=== PATIENT | male | born 2000 | race Caucasian/White ===

== ENCOUNTER 2023-03-17 12:12 | Emergency (ER) | payer SELFPAY ==
[2023-03-17 12:15] VITALS: BP 153/101; PULSE 83; RESP 18; TEMP 37.1; O2SAT 99
[2023-03-17] MEDS: diphenhydrAMINE Elixir 25 MG/10 ML CUP PO (12:37)
[2023-03-17 12:40] VITALS: RESP 18
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
[2023-03-17 13:23] VITALS: BP 153/89; PULSE 75; RESP 18; TEMP 36.8; O2SAT 98
--- OUTSIDE RECORDS SUMMARY | 2023-03-17 14:19 | XMS_ITS | Continuity of Care Document ---
Author Name Unknown Organization [facility] Address Unknown Care Team Providers Care Building Construction Inspector Name Role Phone NikiStuart Primary Care Physician Encounter Date(s): 07/13/22 - 07/13/22 [facility] [address] [facility] [place] [address]- Discharge Disposition: Home or Self Care Allergies, Adverse Reactions, Alerts No Known Allergies Medications albuterol inhaler 0 Refill(s) Start Date: 01/08/13 Status: Ordered Pepcid 40 mg oral tablet 40 mg = 1 tab(s), Oral, BID, # 28 tab(s), 0 Refill(s), Pharmacy: [facility] #[id number], 182.88, cm, 11/19/19 3:28:00 EST, Height/Length Dosing, 86.18, kg, 11/19/19 3:28:00 EST, Weight Dosing Start Date: 11/19/19 Status: Ordered PriLOSEC 20 mg oral delayed release capsule 20 mg = 1 cap(s), Oral, Daily, # 30 cap(s), 0 Refill(s), Pharmacy: [facility] #[id number], 182,cm, 12/22/21 15:26:00 EDT, Height/Length Dosing, 91, kg, 12/22/21 15:26:00 EDT, Weight Dosing Start Date: 12/22/21 Status: Ordered Zofran ODT 4 mg oral tablet, disintegrating 4 mg = 1 tab(s), Oral, q8hr, PRN PRN: as needed for nausea/vomiting, # 5 tab(s), 0 Refill(s), Pharmacy: [facility] #[id number], 182.88, cm, 11/19/19 3:28:00 EST, Height/Length Dosing, 86.18, kg, 02/17/20 3:28:00 EST, Weight Dosing Start Date: 11/19/19 Status: Ordered Problem List Condition Effective Dates Status Health Status Inform ant Asthma(Confirmed) Active Social History Social History Type Response Smoking Status Never smoker Sex Male Care Team Care Team Personnel Name: VALDO Siddiqui Position: Community Physician Med Service: Admitting Member Role: Primary Care Physician Address: Address: [address] Care Team Related Persons Name: EDSON KRAFT Address: Home [address] [place], [id number] Name: EDSON KRAFT Address: [address] [place], [id number] Name: MIKE KAMARA Address: Home [address] [facility] [id number]
--- OUTSIDE RECORDS SUMMARY | 2023-03-17 14:19 | XMS_ITS | Continuity of Care Document ---
Author Name Unknown Organization [facility] Address Unknown Care Team Providers Care Principal Developer Name Role Phone Stuart Prince Primary Care Physician [phone] Encounter Date(s): 12/25/21 - 12/25/21 [facility] [address] [place], [place] [address] Discharge Disposition: Home or Self Care Attending Physician: VALDO Siddiqui Admitting Physician: VALDO Siddiqui Allergies, Adverse Reactions, Alerts No Known Allergies Assessment and Plan Diagnostic Tests Pending * Hepatitis B Core Antibody 12/25/21 * Hepatitis B Surface Antibody 12/25/21 * Hepatitis B Surface Antigen 12/25/21 * Hepatitis C Antibody 12/25/21 Future Scheduled Tests Radiology* US RUQ Sonogram - [id number] 12/25/21 Medications albuterol inhaler 0 Refill(s) Start Date: 01/08/13 Status: Ordered Pepcid 40 mg oral tablet 40 mg = 1 tab(s), Oral, BID, # 28 tab(s), 0 Refill(s), Pharmacy: [facility] #[id number], 182.88, cm, 11/19/19 3:28:00 EST, Height/Length Dosing, 86.18, kg, 11/19/19 3:28:00 EST, Weight Dosing Start Date: 11/19/19 Status: Ordered PriLOSEC 20 mg oral delayed release capsule 20 mg = 1 cap(s), Oral, Daily, # 30 cap(s), 0 Refill(s), Pharmacy: [facility] #[id number], 182,cm, 12/22/21 15:26:00 EDT, Height/Length Dosing, 91, kg, 12/22/21 15:26:00 EDT, Weight Dosing Start Date: 12/22/21 Status: Ordered Zofran ODT 4 mg oral tablet, disintegrating 4 mg = 1 tab(s), Oral, q8hr, PRN PRN: as needed for nausea/vomiting, # 5 tab(s), 0 Refill(s), [id number], 182.88, cm, 11/19/19 3:28:00 EST, Height/Length Dosing, 86.18, kg, 11/19/19 3:28:00 EST, Weight Dosing Start Date: 11/19/19 Status: Ordered Problem List Condition Effective Dates Status Health Status Inform ant Asthma(Confirmed) Active Social History Social History Type Response Smoking Status Never smoker Sex Male Care Team Personnel Name: VALDO Siddiqui Address: [address] [place] [address]- [place]
--- OUTSIDE RECORDS SUMMARY | 2023-03-17 14:19 | XMS_ITS | Continuity of Care Document ---
Author Name Unknown Organization [facility] Address Unknown Care Team Providers Care Policewoman Name Role Phone Unknown PCP, Unknown PCP Primary Care Physician Unavailable Encounter Date(s): 12/03/21 - 12/03/21 [facility] [address] [place] [address]- Discharge Disposition: Home or Self Care Attending Physician: CESAR BURGESS NP Admitting Physician: CESAR BURGESS NP Allergies, Adverse Reactions, Alerts No Known Allergies Medications albuterol inhaler 0 Refill(s) Start Date: 01/08/13 Status: Ordered Pepcid 40 mg oral tablet 40 mg = 1 tab(s), Oral, BID, # 28 tab(s), 0 Refill(s), Pharmacy: [facility] #[id number], 182.88, cm, 11/19/19 3:28:00 EST, Height/Length Dosing, 86.18, kg, 11/19/19 3:28:00 EST, Weight Dosing Start Date: 11/19/19 Status: Ordered Zofran ODT 4 mg oral tablet, disintegrating 4 mg = 1 tab(s), Oral, q8hr, PRN PRN: as needed for nausea/vomiting, # 5 tab(s), 0 Refill(s), Pharmacy: [facility] #[id number], 182.88, cm, 11/19/19 3:28:00 EST, Height/Length Dosing, 86.18, kg, 11/19/19 3:28:00 EST, Weight Dosing Start Date: 11/19/19 Status: Ordered Problem List Condition Effective Dates Status Health Status Inform ant Asthma(Confirmed) Active Results Laboratory List Name Date .Estimated Glomerular Filtration Rate 12/03/21 Auto Differential 12/03/21 CBC Auto Diff reflex Manual Diff (CBC W/ AUTO DIFF) 12/03/21 Comprehensive Metabolic Panel (COMPREHEN SIVE METABOLIC PANEL) 12/03/21 Thyroid Stimulating Hormone (TSH) 12/03/21 Most recent to oldest [Reference Range]: 1 AGAP 7 *NA* (12/03/21 2:43 PM) A/G Ratio 1.2 *NA* (12/03/21 2:43 PM) BUN/Creat Ratio 26 *NA* (12/03/21 2:43 PM) RBC [4.50-5.90 x10(6)/mcL] 4.90 x10(6)/m cL (12/03/21 2:43 PM) RDW [11.5-14.5 %] 13.0 % (12/03/21 2:43 PM) Sodium Level [136-145 mmol/L] 139 mmol/L (12/03/21 2:43 PM) Total Protein [6.4-8.2 gm/dL] 7.4 gm/dL (12/03/21 2:43 PM) TSH [0.360-3.740 mcIU/mL] 1.120 mcIU/mL (12/03/21 2:43 PM) AST [15-37 IU/L] 59 IU/L *HI* (12/03/21 2:43 PM) Bili Total [0.20-1.00 mg/dL] 0.30 mg/dL (12/03/21 2:43 PM) CO2 [21-32 mmol/L] 28 mmol/L (12/03/21 2:43 PM) Albumin Level [3.4-5.0 gm/dL] 4.0 gm/dL (12/03/21 2:43 PM) Alk Phos [45-117 unit/L] 71 unit/L (12/03/21 2:43 PM) ALT [13-61 IU/L] 75 IU/L *HI* (12/03/21 2:43 PM) Hct [41.0-53.0 %] 46.8 % (12/03/21 2:43 PM) Hgb [13.9-16.3 gm/dL] 15.8 gm/dL (12/03/21 2:43 PM) MCH [26.0-34.0 pg] 32.2 pg (12/03/21 2:43 PM) MCHC [31.0-37.0 gm/dL] 33.8 gm/dL (12/03/21 2:43 PM) MCV [80-100 fL] 96 fL (12/03/21 2:43 PM) MPV [9.2-12.7 fL] 9.3 fL (12/03/21 2:43 PM) Glucose Level [74-106 mg/dL] 78 mg/dL (12/03/21 2:43 PM) Platelet [150-350 x10(3)/mcL] 247 x10(3) /mcL (12/03/21 2:43 PM) Potassium Level [3.5-5.1 mmol/L] 4.0 mmo l/L (12/03/21 2:43 PM) WBC [4.5-11.0 x10(3)/mcL] 10.4 x10(3)/mc L (12/03/21 2:43 PM) BUN [7-18 mg/dL] 26 mg/dL *HI* (12/03/21 2:43 PM) Calcium Level [8.5-10.1 mg/dL] 9.2 mg/dL (12/03/21 2:43 PM) Chloride [98-107 mmol/L] 108 mmol/L *HI* (12/03/21 2:43 PM) eGFR AA >60 mL/min/1.73 m2 *NA* (12/03/21 2:43 PM) eGFR SUZI >60 mL/min/1.73 m2 *NA* (12/03/21 2:43 PM) Neutrophil Absolute [1.50-7.80 x10(3)/mc L] 5.28 x10(3)/mcL (12/03/21 2:43 PM) Lymphocyte Absolute [1.10-4.80 x10(3)/mc L] 4.06 x10(3)/mcL (12/03/21 2:43 PM) Monocyte Absolute 0.73 x10(3)/mcL *NA* (12/03/21 2:43 PM) Eosinophil Absolute 0.25 x10(3)/mcL *NA* (12/03/21 2:43 PM) Basophil Absolute 0.05 x10(3)/mcL *NA* (12/03/21 2:43 PM) Imm Gran Absolute 0.02 /mcL *NA* (12/03/21 2:43 PM) NRBC % [0.0-0.2 %] 0.0 % (12/03/21 2:43 PM) Osmol Calculated 281 mOsm/kg *NA* (12/03/21 2:43 PM) Eosinophil Auto [1.0-4.0 %] 2.4 % (12/03/21 2:43 PM) Immature Granulocyte Auto 0 % *NA* (12/03/21 2:43 PM) Lymphocyte Auto [24.0-44.0 %] 39.1 % (12/03/21 2:43 PM) Monocyte Auto [2.0-11.0 %] 7.0 % (12/03/21 2:43 PM) Neutrophil Auto [31.0-76.0 %] 50.8 % (12/03/21 2:43 PM) Basophil Auto [0.0-2.0 %] 0.5 % (12/03/21 2:43 PM) Creatinine [0.6-1.3 mg/dL] 1.0 mg/dL (12/03/21 2:43 PM) Social History Social History Type Response Smoking Status Never smoker Sex Male Care Team Personnel Name: Unknown PCP Unknown PCP,
--- OUTSIDE RECORDS SUMMARY | 2023-03-17 14:20 | XMS_ITS | Continuity of Care Document ---
Author Name Unknown Organization [facility] Address Unknown Care Team Providers Care Certified Fraud Examiner Name Role Phone Stuart Prince Primary Care Physician Encounter Date(s): 12/22/21 - 12/22/21 [facility] [address] [place], [place] [address] Encounter Diagnosis Impacted esophageal foreign body(Discharge Diagnosis) - 12/22/21 Discharge Disposition: Home or Self Care Attending Physician: MARCEL MANSFIELD MD Admitting Physician: MARCEL MANSFIELD MD Allergies, Adverse Reactions, Alerts No Known Allergies Medications albuterol inhaler 0 Refill(s) Start Date: 01/08/13 Status: Ordered Pepcid 40 mg oral tablet 40 mg = 1 tab(s), Oral, BID, # 28 tab(s), 0 Refill(s), Pharmacy: [facility] #[id number], 182.88, cm, 11/19/19 3:28:00 EST, Height/Length Dosing, 86.18, kg, 11/19/19 3:28:00 EST, Weight Dosing Start Date: 11/19/19 Status: Ordered PriLOSEC 20 mg oral delayed release capsule 20 mg = 1 cap(s), Oral, Daily, # 30 cap(s), 0 Refill(s), Pharmacy: [facility] #[id number], 182,cm, 12/22/21 15:26:00 EDT, Height/Length Dosing, 91, kg, 12/22/21 15:26:00 EDT, Weight Dosing Start Date: 12/22/21 Status: Ordered Zofran ODT 4 mg oral tablet, disintegrating 4 mg = 1 tab(s), Oral, q8hr, PRN PRN: as needed for nausea/vomiting, # 5 tab(s), 0 Refill(s), Pharmacy: [facility] #[id number], 182.88, cm, 11/19/19 3:28:00 EST, Height/Length Dosing, 86.18, kg, 11/19/19 3:28:00 EST, Weight Dosing Start Date: 11/19/19 Status: Ordered Mental Status 12/22/21 Orientation Assessment Oriented x 4 Problem List Condition Effective Dates Status Health Status Inform ant Asthma(Confirmed) Active Vital Signs Most recent to oldest [Reference Range]: 1 Temperature Oral [35.8-37.3 DegC] 37.1 D egC (12/22/21 3:26 PM) Peripheral Pulse Rate [60-100 bpm] 110 b pm *HI* (12/22/21 3:26 PM) Respiratory Rate [14-20 br/min] 22 br/mi n *HI* (12/22/21 3:26 PM) Blood Pressure 153/72mmHg (12/22/21 3:26 PM) Social History Social History Type Response Smoking Status Never smoker Sex Male Hospital Discharge Instructions Patient Education 12/22/2021 18:16:17 Follow Up [facility] ([facility]) [facility] Follow up from your Emergency Room Visit Your [facility] Emergency Department provider has recommended follow up at [facility]. This is an important part of the care you have received in the Emergency Department. If you wish to be seen at the [facility], please call [phone] to set up a follow-up appointment. Our telephone service hours are Tuesday ??? 8:00 am ??? 4:30 pm. Our office will review your records and determine when you should be evaluated. We are always prioritizing patients to be seen in a timely manner. If symptoms persist prior to your office visit, please contact your primary care provider, or please go to the nearest Emergency Department for evaluation. We look forward to caring for you at the [facility]. 12/22/2021 18:14:51 Swallowed Foreign Body, Adult, [id number] Swallowed Foreign Body, Adult A swallowed foreign body means that you swallowed something and it got stuck. It might be food or something else. The object may get stuck in the part of your body that moves food from your mouth to your stomach (esophagus), or it may get stuck in another part of your belly (digestive tract). Often, the object will pass through your body on its own. The object may need to be taken out by a doctorif it is dangerous or if it will not pass through your body on its own. Objects may be swallowed by accident or on purpose. It is very important to tell your doctor what you swallowed. Some swallowed objects can be very dangerous. You may need emergency treatment if: ??? An object gets stuck in your throat. ??? You cannot swallow. ??? You cannot breathe well. ??? The object is sharp. ??? The object is harmful or poisonous (toxic). What are the causes? The most common cause is food that will not pass through the part of your body that moves food fromyour mouth to your stomach. When this happens, it is called food impaction. Foods that may cause this include: ??? Meat. ??? Hard vegetables, such as carrots and radishes. Other common swallowed objects include: ??? Pieces of bone from meat or fish. ??? Toothpicks. ??? Dentures. What increases the risk? Wearing dentures. ??? Having been drinking alcohol or taking drugs. ??? Having a mental health condition. ??? Having trouble with thinking and learning (cognitive impairment). ??? Having a narrowed or scarred area in your belly. What are the signs or symptoms? Pain or pressure in your throat or chest. ??? Not being able to swallow food or liquid. ??? Not being able to swallow your spit (saliva). ??? Drooling. ??? Choking. ??? A hoarse voice. ??? Trouble breathing. ??? Noisy breathing. ??? Vomit that has blood in it. How is this treated? No treatment is needed if the object is not dangerous and will come out (pass) in your poop (stool). If the swallowed object is not dangerous, but it is stuck in the part of your body that moves food from your mouth to your stomach: ??? Your doctor may gently suction out the object through your mouth. ??? You may be given a medicine to relax the muscles and allow the object to pass through to the stomach. ??? A procedure called endoscopy may be done to find and remove the object if it does not come out with medicine. Your doctor will put medical tools through a tube (endoscope) to remove the object. You may need emergency treatment if: ??? The object is causing you to breathe in (inhale) spit into your lungs (aspirate). ??? The object is pressing on your airway. This makes it hard for you to breathe. ??? The object can harm the inside of your belly. Some objects that can cause harm include batteries, magnets, sharp objects, and drugs. Follow these instructions at home: Caring for yourself ??? If the object in your belly is expected to come out in your poop: ??? Eat what you normally eat if your doctor says that you can. ??? Keep checking your poop to see if the object has come out of your body. ??? Call your doctor if the object has not come out of your body after 3 days. ??? If you had a procedure to remove the object, follow instructions from your doctor about caring for yourself after the procedure. General instructions ??? Take [id number] and prescription medicines only as told by your doctor. ??? Keep all follow-up visits as told by your doctor. This is important. How is this prevented? Cut your food into small pieces. ??? Always sit upright while eating. ??? Remove bones from meat and fish. ??? Chew your food well before swallowing. ??? Do not talk, laugh, or walk around while eating or swallowing. Contact a doctor if: ??? You still have problems after you have been treated. ??? The object has not come out of your body after 3 days. Get help right away if: ??? You have a fever. ??? You have pain in your chest or your belly. ??? You cough up blood. ??? You have blood in your poop. ??? You have blood in your vomit after treatment. Summary ??? A swallowed foreign body means that you swallowed something and it got stuck. ??? The object may get stuck in the part of the body that moves food from your mouth to your stomach (esophagus), or it may get stuck in another part of your belly (digestive tract). ??? Often, the object will pass through your body on its own. ??? An endoscopy may be done to find and remove the object if it does not pass out of your body after you take medicine. ??? Call your doctor if the object has not come out of your body after 3 days, you have blood in your poop, or you have blood when you cough or vomit. This information is not intended to replace advice given to you by your health care provider. Make sure you discuss any questions you have with your health care provider. Document Revised: 08/02/2019 Document Reviewed: 08/02/2019 Elsevier Patient Education ?? 2020 [employer] Care Team Personnel Name: VALDO Siddiqui [facility] [place] [address] [place], [place] [address]
--- OUTSIDE RECORDS SUMMARY | 2023-03-17 14:21 | XMS_ITS | Continuity of Care Document ---
Author Name Unknown Organization [facility] [employer] SERVICES MANA[facility] Address [address] [facility] [address] [place] [address] Phone [phone] Care Team Providers Care Register Clerk Name Role Phone Angela Cai Care Team Information Receive r [phone] [facility] - Surgery Care Team Info rmation History Faculty Member [phone] Problems Active Problems Provider Date Nausea and vomiting VALDO Parker Onset: Malaise and fatigue VALDO Parker Onset: Social History Type Date Description Comments Sex Male Smokeless Tobacco 07/27/2022 Negative For S mokeless Tobacco Use ETOH Use 04/30/2020 Denies alcohol use Tobacco Use Reviewed: 07/27/22 Patient has never smok ed Recreational Drug Use 04/30/2020 Never Used Drugs Smoking Status Reviewed: 07/27/22 Patient has never sm oked Exercise Type/Frequency 04/30/2020 Exercises regular ly Sun Exposure 04/30/2020 Does not use sunscreen Seat Belt/Car Seat 04/30/2020 Always uses seat belt Allergies and adverse reactions Active Allergies Criticality Reaction Severity Comments Date NKDA Unable to assess criticality 08/18/2017 Seasonal Unable to assess criticality Nasal congestion 07/26/2018 Medications Active Medications SIG Qnty Indications Ordering Provider Date Proair [id number](90Base) mcg/Act Aerosol 2 puffs every 4 hours as needed Unknown Immunizations CPT Code Status Date Vaccine Lot # [id number] Given 04/30/2020 Hep A Adult 2 Doses ( Sta te supply) 19yrs-64 yrs [id number] 12859 Given 04/30/2020 HPV 9 ( State supply) 19y rs-45yrs [id number] 38863 Given 04/30/2020 Men B Bexsero ( State supply) 19yrs-25yrs/ Adult [id number] 02336 Given 05/17/2018 Tdap ( State supply) 7yrs -18yrs [id number] 81854 Given 06/23/2017 HPV Quadrivalent (Histori gildardo) 49774 Given 06/23/2017 Hep A Pedi/Adol 2 Doses ( State supply) 1yr-18 Yrs 79082 Given 09/13/2013 Varicella (Chic sraa Pox) Vaccine ( State supply) 1yr-18yrs 12696 Given 09/13/2012 Tdap ( Private) 65yrs and older 51895 Given 09/13/2012 Influenza Virus Vaccine Split Virus Intramuscular Use 0.5ML 94520 Given 05/19/2005 MMR ( State supply) 1yr-1 8yrs 43014 Given 05/19/2005 IPV(Polio) ( State supply ) 08563 Given 10/26/2004 DTaP < 7 Yrs Infanrix ( State supply) 67176 Given 10/26/2004 Influenza Virus Vaccine Split Virus Intramuscular Use 0.5ML 17642 Given 09/17/2003 Influenza Virus Vaccine Split Virus Intramuscular Use 0.5ML 41357 Given 11/27/2002 DTaP < 7 Yrs Infanrix ( State supply) 88174 Given 01/29/2002 Hep B Pedi/Adol ( State s upply) - 18yrs 94731 Given 01/29/2002 Varicella (Chic sara Pox) Vaccine ( State supply) 1yr-18yrs 00435 Given 08/23/2001 Hib Hboc Conjugate 4 Dose Schedule 37690 Given 08/23/2001 Hib(PRP-T) ( State Supply ) 15914 Given 08/23/2001 MMR ( State supply) 1yr-1 8yrs 26712 Given 04/20/2001 IPV(Polio) ( State supply ) 13167 Given 01/24/2001 Hep B Pedi/Adol ( State s upply) - 18yrs 83876 Given 01/24/2001 PCV 7 (Pneumococcal) 00148 Given 01/16/2001 DTaP < 7 Yrs Infanrix ( State supply) 26423 Given 01/16/2001 Hib(PRP-T) ( State Supply ) 90228 Given 01/16/2001 Hib Hboc Conjugate 4 Dose Schedule 63805 Given 2000 PCV 7 (Pneumococcal) 19997 Given 2000 Hib Hboc Conjugate 4 Dose Schedule 23617 Given 2000 Hib(PRP-T) ( State Supply ) 35471 Given 2000 DTaP < 7 Yrs Infanrix ( State supply) 84277 Given 2000 IPV(Polio) ( State supply ) 44627 Given 2000 IPV(Polio) ( State supply ) 57890 Given 2000 DTaP < 7 Yrs Infanrix ( State supply) 43213 Given 2000 PCV 7 (Pneumococcal) 31827 Given 2000 Hib(PRP-T) ( State Supply ) 05052 Given 2000 Hib Hboc Conjugate 4 Dose Schedule 53106 Given 2000 Hep B Pedi/Adol ( State s upply) - 18yrs Vital Signs Date Vital Result Comment 07/27/2022 5:52pm Weight 204.00 lb with shoes Procedures Date Code Description Status 04/30/2020 [id number] Depression Screening Complet ed Medical Devices Description No Information Available Encounters Description No Information Available Plan of Treatment 07/27/2022 - VALDO Man* R41.882 Impaired concentration* Comments:* Consider ADHD. This does not appear to be any acute change and mental health but rather implications of a new job in which patient is highly motivated to XL may be revealing and making any underlyingtendencies more obvious and problematic. Patient given screener to fill out. Recommend follow-up with PCP. In the meantime patient will try caffeine as he has never really had any significant consumption. Discussed possibility of benefit up to 4 cups. At least try 1 to 2 cups coffee. Functional Status Description No Information Available Mental Status Description No Information Available Referrals Description No Information Available
== END 2023-03-17 14:04 | disposition home or self-care (01) ==
LOC: ER 14:18
PROVIDERS: Emergency Provider Emergency Medicine
DX: Z77.098 Contact with and (suspected) exposure to other hazardous, chiefly nonmedicinal, chemicals (principal); R03.0 Elevated blood-pressure reading, without diagnosis of hypertension
CPT/HCPCS: 99283; 99284